=== PATIENT | female | born 1945 | race Caucasian/White ===

== ENCOUNTER 2023-04-05 18:34 | Emergency (ER) | payer MEDICARE, SELFPAY ==
[2023-04-05 18:41] VITALS: BP 143/67; PULSE 92; RESP 20; TEMP 36.7; O2SAT 98; BMI 44.9
[2023-04-05 19:13] LABS: Bilirubin Urine SMALL (NEGATIVE); Blood Urine LARGE (NEGATIVE); Clarity Urine SL CLOUDY (CLEAR); Color Urine ORANGE (YELLOW); Glucose Urine UA NEGATIVE (NEGATIVE); Ketones Urine TRACE mg/dL (NEGATIVE); Leukocyte Esterase Urine MODERATE (NEGATIVE); Nitrite Urine NEGATIVE (NEGATIVE); Protein Urine >=300 mg/dL (NEG/TRACE); Specific Gravity Urine >=1.030 (1.005-1.025); pH Urine 5.5 (5.0-9.0)
--- NOTE | 2023-04-05 19:22 | ED.GENADUL1 ---
HPI - General Adult General Chief complaint: Urogenital-Female Stated complaint: UTI Time Seen by Provider: 04/05/23 18:42 Source: patient and family Mode of arrival: walk-in Limitations: no limitations History of Present Illness HPI narrative: 77-year-old female presents with chief complaint increased urgency and frequency with urination. She does have a history of dementia. She tells me symptoms began yesterday. Patient's here with daughter. Patient's afebrile nontoxic Related Data Home Medications Medication Instructions Recorded Confirmed atorvastatin 80 mg tablet 80 mg PO DAILY 04/05/23 04/05/23 donepezil 10 mg tablet 10 mg PO .night time 04/05/23 04/05/23 metoprolol tartrate 50 mg tablet 50 mg PO Q12H 04/05/23 04/05/23 olanzapine 5 mg tablet 5 mg PO BEDTIME 04/05/23 04/05/23 pioglitazone 15 mg tablet 15 mg PO DAILY 04/05/23 04/05/23 warfarin 5 mg tablet 5 mg PO DAILY 04/05/23 04/05/23 Previous Rx's Medication Instructions Recorded nitrofurantoin 100 mg PO BID 7 days #14 caps 04/05/23 monohydrate/macrocrystals 100 mg capsule (Macrobid) Allergies Allergy/AdvReac Type Severity Reaction Status Date / Time cefoxitin [From Mefoxin] Allergy Severe edema Verified 04/05/23 18:57 chlorhexidine Allergy Severe Rash Verified 04/05/23 18:57 [From Hibiclens] peanut Allergy Severe Rash Verified 04/05/23 18:57 Review of Systems ROS Narrative All Systems are negative except as noted/marked.All systems reviewed and otherwise negative [facility] Medical History (Updated 04/05/23 @ 19:24 by Rosa Robin) Surgical History (Updated 04/05/23 @ 19:01 by Deshawn Moeller) Social History Smoking status: Never smoker Exam Narrative Exam Narrative: Nurses note and vital signs reviewed and patient is not hypoxic. General: The patient appears well and in no apparent distress. Patient is resting comfortably on cart. Skin: Warm, dry, no pallor noted. There is no rash noted. Head: Normocephalic, atraumatic Eye: Normal conjunctiva, no drainage, EOMI. PERRL GI: Normal bowel sounds, no tenderness to palpation, no masses appreciated. No rebound, guarding, or rigidity noted. Musculoskeletal: The patient has no evidence of calf tenderness, no pitting edema, symmetrical pulses noted bilaterally Neurological: A&O x3 normal speech Psychiatric: Cooperative Constitutional Vital Signs - 24 hr 04/05/23 18:41 Temperature 98.1 F Pulse Rate [Monitor] 92 H Respiratory Rate 20 Blood Pressure [Left Arm] 143/67 H Pulse Oximetry 98 Course Vital Signs Vital signs: Vital Signs Temperature 98.1 F 04/05/23 18:41 Pulse Rate 92 H 04/05/23 18:41 Respiratory Rate 20 04/05/23 18:41 Blood Pressure 143/67 H 04/05/23 18:41 Pulse Oximetry 98 04/05/23 18:41 Temperature 98.1 F 04/05/23 18:41 Pulse Rate 92 H 04/05/23 18:41 Respiratory Rate 20 04/05/23 18:41 Blood Pressure 143/67 H 04/05/23 18:41 Pulse Oximetry 98 04/05/23 18:41 Medical Decision Making [facility] Narrative Medical decision making narrative: She presented here with increased urinary friction burning with urination. Urine is positive for urinary tract infection. Patient be placed on Keflex. Follow-up primary care physician. Patient's otherwise healthy eating and drinking well. Differential Diagnosis Differential Diagnosis: Urinary tract infection, abdominal pain Lab Data Lab results reviewed: Yes I reviewed the patient's lab results Labs: Lab Results 04/05/23 Range/Units 18:30 Urine Color Rapides A (YELLOW) Urine Clarity Sl cloudy (CLEAR) Urine pH 5.5 (5.0-9.0) Ur Specific [place]lin >=1.030 A (1.005-1.025) Urine Protein >=300 A (NEG/TRACE) mg/dL Urine Glucose (UA) Negative (NEGATIVE) mg/dL Urine Ketones Trace A (NEGATIVE) mg/dL Urine Occult Blood Large A (NEGATIVE) Urine Nitrite Negative (NEGATIVE) Urine Bilirubin Small A (NEGATIVE) Urine Urobilinogen 4.0 A (0.2-1.0) EU/dL Ur Leukocyte Esterase Moderate A (NEGATIVE) Urine RBC >100 A (0-2) #/HPF Urine WBC >100 A (NONE SEEN) #/HPF Ur Squamous Epith Cells Moderate A (NONE/RARE) #/LPF Urine Crystals None seen (None Seen) #/HPF Urine Bacteria Small A (NONE SEEN) #/HPF Urine Casts None seen (NONE SEEN) #/LPF Urine Mucus Trace A (NONE SEEN) Ur Culture Indicated? Already ordered Discharge Plan Discharge Chief Complaint: Urogenital-Female Clinical Impression: Urinary tract infection Patient Disposition: Home, Self-Care Time of Disposition Decision: 19:24 Condition: Good Prescriptions / Home Meds: New nitrofurantoin monohyd/m-cryst [Macrobid] 100 mg capsule 100 mg PO BID 7 Days Qty: 14 0RF Rx Instructions: must administer with a meal/food No Action atorvastatin 80 mg tablet 80 mg PO DAILY donepezil 10 mg tablet 10 mg PO .night time metoprolol tartrate 50 mg tablet 50 mg PO Q12H olanzapine 5 mg tablet 5 mg PO BEDTIME pioglitazone 15 mg tablet 15 mg PO DAILY warfarin 5 mg tablet 5 mg PO DAILY Instructions: Urinary Tract Infection in Women (ED) Stand Alone Forms: Portal Instructions Referrals: Jaya Cole MD [Primary Care Provider] - 1 week
[2023-04-05 19:24] LABS: RBC Urine >100 #/HPF (0-2); WBC Urine >100 #/HPF (NONE SEEN)
[2023-04-05 19:25] LABS: Bacteria Urine SMALL #/HPF (NONE SEEN); Cast Seen? NONE SEEN #/LPF (NONE SEEN); Crystals Seen? None Seen #/HPF (None Seen); Mucus Urine TRACE (NONE SEEN); Squamous Epithelial Cell Urine MODERATE #/LPF (NONE/RARE); Urine Culture Indicated ALREADY ORDERED
[2023-04-05] MEDS: NITROFURANTOIN MONOHYD/MAC-CRST 100 MG CAPSULE PO (20:16)
== END 2023-04-05 20:22 | disposition home or self-care (01) ==
PROVIDERS: Physician Assistant; Emergency Provider Internal Medicine; PCP Family Medicine
DX: N39.0 Urinary tract infection, site not specified (principal); F03.90 Unspecified dementia, unspecified severity, without behavioral disturbance, psychotic disturbance, mood disturbance, and anxiety; Z79.899 Other long term (current) drug therapy; Z79.01 Long term (current) use of anticoagulants
CPT/HCPCS: 81001; 87086; 87150; 87186; 99283

== ENCOUNTER 2025-08-07 11:33 | Outpatient (OUT) | payer MEDICARE, SELFPAY ==
--- OUTSIDE RECORDS SUMMARY | 2024-07-29 09:00 | XMS_ITS ---
Author Organization The [facility] in [place] Address [address] [place] [address] Care Team Providers Care Hydraulic Repairer Name Role Phone Mike Cole Primary Care Provider REASON FOR VISIT Medicare Wellnes Encounters Encounter Location Date Provider Diagnosis [facility] [address] [place] [address] 07/29/2024 Mike Cole Plan Of Treatment Next Appt Details Provider Name:Mike Cole, 11:00:00 AM, [address] [place], [address], Progress Notes * Jesika SINGLETON SDOB:[birth year] (79 yo F)Acc No.[id number]:07/29/2024 UNLOCKED PROGRESS NOTE Progress Note Patient: Jesika BORGES [facility] Melissa :1945 A ge:78 Y S ex:Female Date:07/29/2024 Address:[address] [place] [id number] Subjective: * Chief Complaints: * 1 . Medicare [facility]. * Medical History: Objective: * Vitals: Assessment: Plan: * Treatment: * * Electronic signature of Mike Cole MD, [phone] on 08/07/2025 at 11:35 AM EDT Sign off status: Pending Visit Status: C ANCPHONE (Cancelled Phone) * Provider: Jaime [facility] ([facility])MD Date: 1 Generated for Janusz stanley/Eliu/Gabby on: 1 11:35 AM EDT
--- OUTSIDE RECORDS SUMMARY | 2025-08-04 10:30 | XMS_ITS ---
Author Organization The [facility] in [place] Address [address] [place] [address] Care Team Providers Care Finance Associate Name Role Phone Mike Cole Primary Care Provider [phone] Allergies Allergen (clinical drug ingredient) Drug/Non Drug Allergy documented on EMR Reaction Allergy Type Onset Date Status Mefoxin Unknown Drug Allergy Active Results Component Value Reference Range Notes UA DIP NONAUTO WO MICRO (810 02) - IN OFFICE Reviewed date:08/04/2025 02:21:02 PM Interpretation: Performing Lab: Notes/Report: COLOR yellow CLARITY clear GLUCOSE - BILIRUBIN - KETONE + SPECIFIC GRAVITY 1.015 BLOOD + PH 5.0 PROTEIN + UROBILINOGEN - NITRITE + REASON FOR VISIT UTI- Frequent Urination, Chest Congestion, Swollen Glands and Sore Throat Medications Medication SIG (Take, Route, Frequency, Duration) Notes Start Date End Date Status Pyridium 200 MG 1 tablet after meals Orally Three times a day; Duration: 2 days 08/04/2025 Active Pioglitazone HCl 15 MG 1 tablet Orally O nce a day; Duration: 30 days Active Vitamin D3 50 MCG (1999) 1 capsule Or ally Once a day; Duration: 30 days Active Donepezil HCl 10 MG 1 tablet at bedtime Orally daily; Duration: 30 days Active Metoprolol Tartrate 25 MG 1 tablet with food Orally Twice a day Active OLANZapine 2.5 MG 1 tablet Orally Once a day; Duration: 30 days Active Ciprofloxacin HCl 500 MG 1 tablet Orally every 12 hrs; Duration: 10 days 08/04/2025 Active DULoxetine HCl 60 MG 2 capsule Orally On ce a day; Duration: 90 days Active Atorvastatin Calcium 20 MG 1 tablet Oral ly Once a day; Duration: 30 days Active Social History Tobacco Use: Social History Observation Description Date Details (start date - stop date) Never Smoker NA - NA Tobacco Use/Smoking Question Answer Notes Patient is a nonsmoker Vital Signs Weight 142.0 lbs 08/04/2025 Height 60 in 08/04/2025 Blood pressure systolic 132 mm Hg 08/04/20 25 Blood pressure diastolic 82 mm Hg 025 BMI 27.73 kg/m2 08/04/2025 Encounters Encounter Location Date Provider Diagnosis [facility] [address] [place] [address] 08/04/2025 Mike Hoy Dysuria R30.0 ; Acut e UTI N39.0 ; Type 2 diabetes mellitus with diabetic neuropathy, unspecified E11.40 and UTI (urinary tract infection), uncomplicated N39.0 Assessments Encounter Date Diagnosis (ICD Code) Assessment Notes Treatment Notes Treatment Clinical Notes Section Notes 08/04/2025 Dysuria (ICD-10 - R30.0) 08/04/2025 Acute UTI (ICD-10 - N39.0) 08/04/2025 Type 2 diabetes mellitus with diabetic neuropathy, unspecified (ICD-10 - E11.40) 08/04/2025 UTI (urinary tract infection), uncomplicated (ICD-10 - N39.0) Drink plenty of water. Avoid drinks like coffee, alcohol and soft frinks, as these can irritate your bladder and aggravate your frequent or urgent need to urinate. Apply a warm heating pad to your abdomen to minimize bladder pressure or discomfort. You have been prescribed antibiotics for a urinary tract infection. Antibiotics may bother your stomach, so try taking them with a light meal (unless instructed otherwise by your pharmacist). It is important to take them until they are finished. You can use [id number]-[id number] acetaminophen or ibuprofen if needed for pain. You should follow up with your Primary Care Physician or return to clinic if not improving in the next 3-5 days. Plan Of Treatment Medication Medication Name Sig Start Date Stop Date Notes Pyridium 200 MG 1 tablet after meals Orally Three times a day; Duration: 2 days 08/04/2025 Pioglitazone HCl 15 MG 1 tablet Orally O nce a day; Duration: 30 days Vitamin D3 50 MCG (1999 UT) 1 capsule Or ally Once a day; Duration: 30 days Donepezil HCl 10 MG 1 tablet at bedtime Orally daily; Duration: 30 days Metoprolol Tartrate 25 MG 1 tablet with food Orally Twice a day OLANZapine 2.5 MG 1 tablet Orally Once a day; Duration: 30 days Ciprofloxacin HCl 500 MG 1 tablet Orally every 12 hrs; Duration: 10 days 08/04/2025 Atorvastatin Calcium 20 MG 1 tablet Oral ly Once a day; Duration: 30 days Treatment Notes Assessment Notes UTI (urinary tract infection ), uncomplicated Drink plenty of water. Avoid drinks like coffee, alcohol and soft frinks, as these can irritate your bladder and aggravate your frequent or urgent need to urinate. Apply a warm heating pad to your abdomen to minimize bladder pressure or discomfort. You have been prescribed antibiotics for a urinary tract infection. Antibiotics may bother your stomach, so try taking them with a light meal (unless instructed otherwise by your pharmacist). It is important to take them until they are finished. You can use lkkq-mja-oznrwye acetaminophen or ibuprofen if needed for pain. You should follow up with your Primary Care Physician or return to clinic if not improving in the next 3-5 days. Pending Test Test Name Order Date HEMOGLOBIN A1C (GLYCO) 08/04/2025 IRON, TOTAL 08/04/2025 LIPID PANEL (CHOL/TRIG/HDL/LDL) 08/04/20 25 THYROID PANEL (T4/TSH/FREE T3) CMP (COMP MET ARNOLD) w/eGFR CKD-EPI 2024 CBC WITH DIFF 08/04/2025 Next Appt Details Follow Up: 3-5 days if no im provement, Reason: Provider Name:Mike Cole, 11:00:00 AM, [address] [facility] [place], [address], Progress Notes * Jesika SINGLETON SDOB:[birth year] (79 yo F)Acc No.[id number]:08/04/2025 Progress Note Patient: Jesika BORGES Provider: Jaime Cole ([facility])MD :1945 A ge:79 Y S ex:Female Date:08/04/2025 Address:[address] [place] [address] , [place], [id number] Check In:02:02 PM ESTCheck O ut:03:06 PM EST Subjective: * Chief Complaints: * U TI- Frequent UrinationChest Congestion, Swollen Glands and Sore Throat * HPI: G eneral: Doign great wiht weight loss UTI sympotms. U TI: The patient complains of s ymptoms of UTI. The symptoms have been present for 1 -2 days. The symptoms are m oderate. Symptomatic treatment has included O TC Medication. Associated symptoms include i ncreased urge to urinate, painful urination, pelvic pain. * ROS: G eneral/Constitutional: Malaise d enies. C hills d enies. F ever d enies. S kin: Rash d enies. C ardiovascular: Edema d enies. P alpitations d enies. ? R espiratory: Chest pain d enies. C ough d enies. ? G astrointestinal: Abdominal pain d enies. N ausea d enies. V omiting d enies. G enitourinary: Comments S ee HPI for details. S kin: Rash d enies. * Active Problem List E11.40 Type 2 diabetes adam itus with diabetic neuropathy, unspecified Modified On:06/27/2023W/U Status:confirmed * Medical History: * Surgical History: h eart stent * Hospitalization/Major Diagno stic Procedure: D enies Past Hospitalization * Family History: F ather: . M other: . * Social History: T obacco Use: T obacco Use/Smoking P atient is a n onsmoker * Medications: T akingDULoxetine HCl 60 MG Capsule Delayed Release Particles 2 capsule Orally Once a day Taking DULoxetine HCl 60 MG Capsule Delayed Release Particles 2 capsule Orally Once a day DiscontinuedAtorvastatin Calcium Donepezil HCl Metoprolol Tartrate OLANZapine Pioglitazone HCl Vitamin D3 Medication List reviewed and reconciled with the patientDiscontinued Atorvastatin Calcium Discontinued Donepezil HCl Discontinued Metoprolol Tartrate Discontinued OLANZapine Discontinued Pioglitazone HCl Discontinued Vitamin D3 Medication List reviewed and reconciled with the patient * Allergies: M efoxin: Allergy - Criticality Unknownno[Allergies Verified] Objective: * Vitals: W t:142.0lbs, Ht: 60 in, BP:132/82mm Hg, BMI:27.73Index, Ht-cm: 152.4 cm, Wt-k.41 kg. * Examination: G eneral Examination: GENERAL APPEARANCE: w ell developed, well nourished, in no acute distress. ENT: ear and nose external appearance normal. ENMT: tongue, hard and soft palate and posterior pharynx appear normal. LYMPH NODES: n o axillary, supraclavicular or inguinal adenopathy. LUNGS: c lear to auscultation bilaterally. CARDIO: S 1, S2 normal, no murmurs, rubs, gallops. ABDOMEN: s oft, nontender, nondistended. GENITOURINARY: Bladder non-distended, urethra normal.? MUSCULOSKELETAL: full range of motion. SKIN: no rashes, warm and dry. NEUROLOGIC: alert and oriented to time, place, & person. PSYCH: mood/affect full range. Assessment: * Assessment: 1. D ysuria - R30.0 (Primary) 2 . A cute UTI - N39.0 3 .?Type 2 diabetes mellitus with diabetic neuropathy, unspecified - E11.40 4 . U TI (urinary tract infection), uncomplicated - N39.0 Plan: * Treatment: 2. A cute UTI Start Pyridium Tablet, 200 MG, 1 tablet after meals, Orally, Three times a day, 2 days, 9; S tart Ciprofloxacin HCl Tablet, 500 MG, 1 tablet, Orally, every 12 hrs, 10 days, 20 Tablet. L AB: HEMOGLOBIN A1C (GLYCO) L AB: IRON, TOTAL L AB: LIPID PANEL (CHOL/TRIG/HDL/LDL) L AB: THYROID PANEL (T4/TSH/FREE T3) L AB: CMP (COMP MET ARNOLD) w/eGFR CKD-EPI L AB: CBC WITH DIFF 3. T ype 2 diabetes mellitus with diabetic neuropathy, unspecified L AB: HEMOGLOBIN A1C (GLYCO) L AB: IRON, TOTAL L AB: LIPID PANEL (CHOL/TRIG/HDL/LDL) L AB: THYROID PANEL (T4/TSH/FREE T3) L AB: CMP (COMP MET ARNOLD) w/eGFR CKD-EPI L AB: CBC WITH DIFF 4. U TI (urinary tract infection), uncomplicated Notes:Drink plenty of water. Avoid drinks like coffee, alcohol and soft frinks, as these can irritate your bladder and aggravate your frequent or urgent need to urinate. Apply a warm heating pad to your abdomen to minimize bladder pressure or discomfort. You have been prescribed antibiotics for a urinary tract infection. Antibiotics may bother your stomach, so try taking them with a light meal (unless instructed otherwise by your pharmacist). It is important to take them until they are finished. You can use bmxq-trz-xgbyahm acetaminophen or ibuprofen if needed for pain. You should follow up with your Primary Care Physician or return to clinic if not improving in the next 3-5 days. * Labs: * L ab: UA DIP NONAUTO WO MICRO (85247) - IN OFFICE (Collection Date & Time - 08/04/2025) Value Reference Range C OLOR yellow * C LARITY clear * G LUCOSE - * B ILIRUBIN - * K ETONE + * S PECIFIC GRAVITY 1.015 * B LOOD + * P H 5.0 * P ROTEIN + * U ROBILINOGEN - * N ITRITE + * Procedure Codes: 8 1000 URINALYSIS, Modifiers: QW 43730 URINALYSIS WO MICRO * Follow Up: 3 -5 days if no improvement * * Sign off status: Completed Visit Status: C HK (Check Out) true * Provider: Jaime Cole ([facility])MD Date: Generated for Printi ng/Faxing/eTransmitting on: 11:35 AM EDT History and Physical Notes * HPI (History of Present Illness) Category Sub-Category Detail Notes Category Not es General Doign great wiht weight loss UTI sympotms UTI The patient complains of symptoms of UTI The symptoms have been present for 1-2 d ays The symptoms are moderate Symptomatic treatment has included OTC M edication Associated symptoms include increased ur ge to urinate, painful urination, pelvic pain Examination Category Sub-Category Detail Notes Category Not es General Examination GENERAL APPEARANCE: well dev eloped, well nourished, in no acute distress ENT: ear and nose externa l appearance normal CARDIO: S1, S2 normal, no mu rmurs, rubs, gallops LUNGS: clear to auscultatio n bilaterally ABDOMEN: soft, nontender, non distended NEUROLOGIC: alert and oriented t o time, place, & person SKIN: no rashes, warm and dry MUSCULOSKELETAL: full range of motion LYMPH NODES: no axillary, supracl avicular or inguinal adenopathy PSYCH: mood/affect full ran ge ENMT: tongue, hard and sof t palate and posterior pharynx appear normal GENITOURINARY: Bladder non-distende d, urethra normal
--- OUTSIDE RECORDS SUMMARY | 2025-08-07 11:35 | XMS_ITS | Clinical Summary ---
Author Organization [facility] Address [address] [place] [address] Care Team Providers Care Cnc Mill And Lathe Operator Name Role Phone Unavailable Primary Care Provider Unavailabl e Social History Tobacco Use Types Packs/Day Years Used Date Smoking Tobacco: Never Assessed Comments Unknown Sex and Gender Information Value Date Recorded Sex Assigned at Not on file Legal Sex Female 11:48 PM EDT Gender Identity Not on file Sexual Orientation Not on file Last Filed Vital Signs Vital Sign Reading Time Taken Comments Blood Pressure 130/72 08/10/2019 10:31 AM EDT Pulse - - Temperature - - Respiratory Rate - - Oxygen Saturation 91% 08/10/2019 10:30 AM EDT Inhaled Oxygen Concentration - - Weight 83 kg (183 lb) 08/10/2019 10:28 AM EDT Height 157.5 cm (5' 2 ) 08/10/2019 10:28 AM EDT Body Mass Index 33.47 08/10/2019 10:28 AM EDT Plan of Treatment Not on file
--- OUTSIDE RECORDS SUMMARY | 2025-08-07 11:35 | XMS_ITS | Clinical Summary ---
Author Organization [employer] Address [id number] [address] [place] [address] Care Team Providers Care Measurement Specialist Name Role Phone Jaya Cole MD Primary Care Provider [phone] Allergies Active Allergy Reactions Criticality Noted Date Comments Cefoxitin Bronchospasm High 02/28/2018 STATES IT'S BEEN A LONG TIME AGO. MEFOXIN Medications potassium chloride 20 mEq tablet extended release Take 20 mEq by mouth 2 (two) times a day. 02/28/2018 Active DULoxetine (CYMBALTA) 60 mg capsule Take 60 mg by mouth daily. AM 02/28/2018 Active metoprolol tartrate 75 mg tablet Take 75 mg by mouth 2 (two) times a day. 02/28/2018 Active sitaGLIPtin (JANUVIA) 100 mg tablet Take 100 mg by mouth daily. AM 02/28/2018 Active donepezil (ARICEPT) 10 mg tablet Take 10 mg by mouth nightly. 02/28/2018 Active omeprazole (PriLOSEC) 20 mg capsule Take 20 mg by mouth daily. AM 02/28/2018 Active atorvastatin (LIPITOR) 80 mg tablet Take 80 mg by mouth daily. AM 02/28/2018 Active diphenoxylate-a tropine (LOMOTIL) 2.5-0.025 mg per tablet Take 1 tablet by mouth 2 (two) times a day. FOR DIARRHEA 02/28/2018 Active ferrous sulfate (IRON, FERROUS SULFATE,) 325 (65 FE) mg tablet Take 325 mg by mouth daily with breakfast. 02/28/2018 Active rivaroxaban (XARELTO) 20 mg tablet tablet Take 20 mg by mouth daily with dinner. 02/28/2018 Active Social History Tobacco Use Types Packs/Day Years Used Date Smoking Tobacco: Never Assessed Childcare Answer Date Recorded Childcare Unknown 04/08/2019 Employment Answer Date Recorded Employment Unknown 04/08/2019 Purpose - Life Answer Date Recorded Purpose and direction in life Unknown Comments Unknown Sex and Gender Information Value Date Recorded Sex Assigned at Not on file Legal Sex Female 11:24 AM EDT Gender Identity Not on file Sexual Orientation Not on file Last Filed Vital Signs Vital Sign Reading Time Taken Comments Blood Pressure 110/64 03/18/2018 2:55 PM EDT Pulse 62 03/18/2018 2:55 PM EDT Temperature 37 C (98.6 F) 03/18/2018 2:55 PM EDT Respiratory Rate 14 03/18/2018 2:55 PM EDT Oxygen Saturation 95% 03/14/2018 2:51 PM EDT Inhaled Oxygen Concentration - - Weight 70 kg (154 lb 6 oz) 03/07/2018 4:15 PM ED T Height 154.3 cm (5' 0.75 ) 02/28/2018 10:50 AM E DT Body Mass Index 29.41 02/28/2018 10:50 AM EDT Plan of Treatment Not on file Medical Devices Not on file Insurance MEDICARE Care Teams Measurement Specialist Relationship Specialty Start Date End Date Jaya Cole MD PCP - General 02/21/18
--- OUTSIDE RECORDS SUMMARY | 2025-08-07 11:35 | XMS_ITS | Clinical Summary ---
Author Organization [facility] Address [address] [place] [address] Care Team Providers Care Diesel Maintenance Technician Name Role Phone Unavailable Primary Care Provider Unavailabl e Social History Tobacco Use Types Packs/Day Years Used Date Smoking Tobacco: Never Assessed Comments Unknown Sex and Gender Information Value Date Recorded Sex Assigned at Not on file Legal Sex Female 7:14 PM EDT Gender Identity Not on file Sexual Orientation Not on file Plan of Treatment Not on file Insurance MEDICARE
--- OUTSIDE RECORDS SUMMARY | 2025-08-07 11:35 | XMS_ITS | Patient Health Record ---
Author Organization [facility] [place] Address [address] [place] [address] Care Team Providers Care Associate Professor Of Geography Name Role Phone Mike Cole Primary Care Provider [phone] Allergies Allergen (clinical drug ingredient) Drug/Non Drug [...] 5.0 PROTEIN + UROBILINOGEN - NITRITE + Reason For Referral No Information Medications Medication SIG (Take, Route, Frequency, Duration) Notes Start Date End Date Status Donepezil HCl 10 MG 1 tablet at bedtime Orally daily; Duration: 30 days Active Ciprofloxacin HCl 500 MG 1 tablet Orally every 12 hrs; Duration: 10 days 08/04/2025 Active DULoxetine HCl 60 MG 2 capsule Orally On ce a day; Duration: 90 days Active Atorvastatin Calcium 20 MG 1 tablet Oral ly Once a day; Duration: 30 days Active Pyridium 200 MG 1 tablet after meals Orally Three times a day; Duration: 2 days 08/04/2025 Active Pioglitazone HCl 15 MG 1 tablet Orally O nce a day; Duration: 30 days Active Vitamin D3 50 MCG (1999 UT) 1 capsule Or ally Once a day; Duration: 30 days Active Metoprolol Tartrate 25 MG 1 tablet with food Orally Twice a day Active OLANZapine 2.5 MG 1 tablet Orally Once a day; Duration: 30 days Active Immunizations Vaccine Route Administration Date Status Comme nts Pneumococcal (Pneumovax 23) Unknown 06/24/2017 Administ ered Pneumococcal (Pneumovax 23) Unknown 09/27/2017 Administ ered Social History Tobacco Use: Social History Observation Description Date Details (start date - stop date) Never Smoker NA - NA Tobacco Use/Smoking Question Answer Notes Patient is a nonsmoker Problems Problem Type SNOMED Code ICD Code Onset Dates Problem Status W/U Status Risk Notes Problem Diabetic peripheral neuropathy associated with type 2 diabetes mellitus ([id number]) Type 2 diabetes mellitus with diabetic neuropathy, unspecified (E11.40) Active confirmed Vital Signs Blood pressure diastolic 82 mm Hg 08/04/2025 Height 60 in 08/04/2025 Blood pressure systolic 132 mm Hg 08/04/2025 Weight 142.0 lbs 08/04/2025 BMI 27.73 kg/m2 08/04/2025 Encounters Encounter Location Date Provider Diagnosis [facility] [address] [place] [address] 08/04/2025 Mike Hoy Dysuria R30.0 ; Acut [...] until they are finished. You can use [id number]-dzimuxn acetaminophen or ibuprofen if needed for pain. You should follow up with your Primary Care Physician or return to clinic if not improving in the next 3-5 days. Plan Of Treatment Pending Test Test Name Order Date HEMOGLOBIN A1C (GLYCO) 08/04/2025 IRON, TOTAL 08/04/2025 LIPID PANEL (CHOL/TRIG/HDL/LDL) 08/04/20 25 THYROID PANEL (T4/TSH/FREE T3) CMP (COMP [place]) w/eGFR CKD-EPI 2024 CBC WITH DIFF 08/04/2025 Next Appt Details Provider Name:Mike Cowan Quiquenanci, 11:00:00 AM, [address] [place], [address], Insurance Providers Payer Name Payer Address Payer Phone Subscriber Number Group Number Insured Name Patient Relationship to Insured Coverage Start Date Coverage End Date [place] [address] [place] [address] [phone] [id number] Jesika Montez Self - patient is the insured Medical (General) History Medical History History ICD Code arthritis diabetes CHF alzheimers Surgical History Surgery Date(Month/Year) heart stent
--- OUTSIDE RECORDS SUMMARY | 2025-08-07 11:36 | XMS_ITS | Clinical Summary ---
Author Organization [facility] Address [facility] [place] [id number] Care Team Providers Care Record Searcher Name Role Phone Jaya Cole MD Primary Care Provider [phone] Miah Shafer DO Unavailable [phone] Freda De La Torre OPTICAL BRIGHTENER MAKER HELPER.ATTRACTION ATTENDANT Unavailable Emma Love RN Unavailable [phone] Allergies Active Allergy Reactions Criticality Noted Date Comments Cefoxitin Swelling Medications atorvastatin (LIPITOR) 80 mg tablet Take 80 mg by mouth once daily. 8 Active diclofenac, EC, (VOLTAREN) 75 mg EC tablet Take 75 mg by mouth twice daily. 11 8 Active ferrous sulfate 325 mg (65 mg iron) tablet Take 1 tablet by mouth twice daily. 1 8 Active JANUVIA 100 mg tablet Take 100 mg by mouth once daily. 8 Active metoprolol tartrate, short acting, (LOPRESSOR) 25 mg tablet taking 75 mg twice a day Active DULoxetine (CYMBALTA) 60 mg capsule Take 60 mg by mouth once daily. Active donepezil (ARICEPT) 10 mg tablet Take 10 mg by mouth once daily. Active triamcinolone acetonide (KENALOG) 0.1 % cream Apply to affected area twice daily. APPLY TO AFFECTED AREA 1 8 Active ondansetron (ZOFRAN, HYDROCHLORIDE,) 8 mg tablet Take 8 mg by mouth every 8 hours as needed. Active prochlorperazin e (COMPAZINE) 10 mg tablet Take 10 mg by mouth every 6 hours as needed. Active omeprazole (PRILOSEC) 20 mg capsule Take 1 capsule by mouth once daily. 30 capsule 8 Active ACCU-CHEK TIKA PLUS TEST STRP test strip 8 Active diphenoxylate-a tropine (LOMOTIL) 2.5-0.025 mg per tablet take 1 tablet by mouth 2 TO 4 TIMES A DAY-30 DAY SUPPLY 0 8 Active potassium chloride 20 mEq TbER Take 1 tablet by mouth twice daily. 0 8 Active XARELTO 20 mg tablet take 1 tablet by mouth once daily WITH SUPPER 0 8 Active predniSONE (DELTASONE) 5 mg tablet Take 1 tablet by mouth once daily. 30 tablet 8 Active potassium chloride ER (K-DUR, KLOR-CON) 20 mEq tabletIndicatio ns:Hypokalemia Take 1 tablet by mouth twice daily. 60 tablet 3 8 Active warfarin (COUMADIN) 5 mg tablet Take 5 mg by mouth daily as directed. Active albuterol HFA (PROVENTIL HFA, VENTOLIN HFA) 90 mcg/actuation inhaler Inhale 2 Puffs as instructed every 6 hours as needed. 1 Inhaler 5 8 Active guaiFENesin (MUCINEX) 600 mg 12 hr tablet Take 1 tablet by mouth twice daily. 60 tablet 8 Active predniSONE (DELTASONE) 20 mg tablet Take 1 tablet by mouth once daily. 5 tablet 8 Active meclizine (ANTIVERT) 25 mg tab 1 8 Active pioglitazone (ACTOS) 15 mg tablet 1 8 Active ciprofloxacin HCl (CIPRO) 500 mg tablet Take 500 mg by mouth twice daily. Active benzonatate (TESSALON PERLE) 100 mg capsule Take 1 capsule by mouth three times daily as needed for Cough. 60 capsule 9 Active guaiFENesin (MUCINEX) 600 mg 12 hr tablet Take 1 tablet by mouth twice daily. 60 tablet 9 Active Active Problems Problem Noted Date Diagnosed Date Megaloblastic anemia due to vitamin B12 deficien cy 12/25/2018 Dehydration 02/25/2018 Type 2 diabetes mellitus without complications 0 02/25/2018 Osteoarthritis 02/25/2018 Ataxic gait 02/12/2018 Essential (primary) hypertension 02/10/2018 History of falling 02/10/2018 Atherosclerotic heart diseas e of [place] coronary artery without angina pectoris 01/22/2018 Breast cancer Cancer Staging:Clinical stage from 02/26/2018: cT2, cN0, cM0, ER: Negative, [place]: Negative, HER2: Positive - Signed by Miah Shafer on 02/26/2018 Resolved Problems Problem Noted Date Diagnosed Date Resolved Date 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 Last address used for calculation Not on file 10/05/2020 Comments Unknown Sex and Gender Information Value Date Recorded Sex Assigned at Not on file Legal Sex Female 3:59 PM EST Gender Identity Not on file Sexual Orientation Not on file Last Filed Vital Signs Vital Sign Reading Time Taken Comments Blood Pressure 131/48 05/06/2019 10:24 AM EDT Pulse 55 05/06/2019 10:24 AM EDT Temperature 36.4 C (97.6 F) 05/06/2019 10:24 AM EDT Respiratory Rate 16 05/06/2019 10:24 AM EDT Oxygen Saturation 96% 05/06/2019 10:24 AM EDT Inhaled Oxygen Concentration - - Weight 87.2 kg (192 lb 4.8 oz) 05/06/2019 10:24 AM EDT Height 151.1 cm (4' 11.49 ) 03/18/2019 10:26 AM EDT Body Mass Index 38.21 03/18/2019 10:26 AM EDT Plan of Treatment Health Maintenance Due Date Last Done Comments Anxiety Screening 1961 Depression Screening 1961 DTaP,Tdap,Td Vaccine (1 - Tdap) 1962 Diabetes Screening 1988 Pneumococcal Vaccine: 50+ (1 of 1 - PCV) 1993 Shingrix Vaccine (1 of 2) 1993 Bone Density Screening 2008 RSV Vaccine (1 - 1-dose 75+ series) 2018 Advance Directive Discussion 10/28/2024 Covid-19 Vaccine (1 - 2024- season) 2025 Influenza Vaccine (#1) 2025 Insurance MEDICARE Care Teams Record Searcher Relationship Specialty Start Date End Date Jaya Cole MD PCP - General Family Medicine 10/12/13 Miah Shafer DO Consulting Hematology/Oncology 12/12/17 Freda De La Torre APRN.ATTRACTION ATTENDANT [address] [place] [address] [address] [place] [address] Nurse Practitioner Hematology/Oncology 07/09/19 Emma Love, BRITTANY [address] [place] [address] Specialty Software Engineering Specialist Hematology/Oncology 07/09/19
--- OUTSIDE RECORDS SUMMARY | 2025-08-07 11:36 | XMS_ITS ---
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 Past Treatment and Therapy Plans NON-CHEMO 1 Plan Name Start Date Discontinue Date Treatment Medications Discontinue Reason Plan Provider Cycles GI FLUIDS 02/06/2018 03/24/2019 No medications scheduled. 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
[2025-08-07 11:58] LABS: Hematocrit 50.0 % (36.0-48.0); Hemoglobin 16.3 g/dL (12.0-16.0); Immature Granulocytes Abs Auto 0.02 10^3/uL (0.00-0.03); Immature Granulocytes Pct Auto 0.3 % (0.0-0.5); Lymphocytes Absolute Auto 1.4 10^3/uL (1.2-3.8); Mean Corpuscular HGB Conc 32.6 g/dL (29.9-35.2); Mean Corpuscular Hemoglobin 31.0 pg (26.7-34.0); Mean Corpuscular Volume 95.1 fL (81.0-99.0); Platelet Count 213 10^3/uL (150-450); Red Blood Count 5.26 10^6/uL (4.20-5.40); White Blood Count 7.4 10^3/uL (4.0-11.0)
[2025-08-07 12:32] LABS: Alanine Aminotransferase 18 U/L (14-59); Albumin Globulin Ratio 0.9; Albumin Level 3.5 g/dL (3.4-5.0); Alkaline Phosphatase 99 U/L (46-116); Anion Gap 8.8; Aspartate Amino Transferase 16 U/L (15-37); Blood Urea Nitrogen 30.0 mg/dL (7.0-18.0); Calcium 9.1 mg/dL (8.5-10.1); Carbon Dioxide 30.3 mmol/L (21.0-32.0); Chloride 103 mmol/L (98-107); Cholesterol 246 mg/dL (<=200); Estimated GFR (African America >60 (>=60 mL/min/1.73m^2); Estimated GFR (Non-African Ame 58 (>=60 mL/min/1.73m^2); Free T3 1.85 pg/mL (2.18-3.98); Globulin 3.7 g/dL; Glucose 118 mg/dL (74-106); HDL Cholesterol 57 mg/dL (40-60); Potassium 4.1 mmol/L (3.5-5.1); Sodium 138 mmol/L (136-145); Thyroid Stimulating Hormone 0.473 uIU/mL (0.358-3.740); Total Protein 7.2 g/dL (6.4-8.2); Triglycerides 106 mg/dL (<=150); VLDL CHOLESTEROL 21.2 mg/dL
[2025-08-07 12:42] LABS: Iron 71.0 ug/dL (50.0-170.0)
== END 2025-08-07 11:34 | disposition home or self-care (01) ==
LOC: LAB 11:33
PROVIDERS: PCP Family Medicine; Visit Provider Family Medicine
DX: R30.0 Dysuria (principal); N39.0 Urinary tract infection, site not specified; E11.40 Type 2 diabetes mellitus with diabetic neuropathy, unspecified; E78.5 Hyperlipidemia, unspecified; D64.9 Anemia, unspecified; E03.9 Hypothyroidism, unspecified; I10 Essential (primary) hypertension; D50.9 Iron deficiency anemia, unspecified
CPT/HCPCS: 36415; 80053; 80061; 83036; 83540; 84436; 84443; 84481; 85025